=== PATIENT | female | born 1945 | race Caucasian/White ===

== ENCOUNTER 2017-05-07 10:03 | Emergency (ER) | payer BC, MEDICARE ==
[~2017-05-07] VITALS: Ht 157.5 cm; Wt 50.0 kg
[~2017-05-07 10:03] MED LIST: /PROG10CA; ESTROGEN PATCH; TUSSSUS5; VITAMIN D50000 UNT
[2017-05-07] MEDS ORDERED: MULT1TAB10 PO (10:23)
[2017-05-07] MEDS ORDERED: PRIL20TA2 PO (10:23)
[2017-05-07] MEDS ORDERED: PROZ40CA PO (10:23)
[2017-05-07] MEDS ORDERED: ZANT300T PO (10:23)
[2017-05-07] MEDS ORDERED: VITA10006 PO (10:23)
[2017-05-07] MEDS ORDERED: VESI10TA PO (10:23)
[2017-05-07] MEDS ORDERED: ALPR0.25 PO (10:23)
[2017-05-07] MEDS ORDERED: LIPI10TA PO (10:23)
[2017-05-07] MEDS ORDERED: ASPI81TA7 PO (10:23)
[2017-05-07] MEDS ORDERED: VITA20008 PO (10:23)
[2017-05-07] MEDS ORDERED: ASPIRIN 81 MG CHEW TABLET PO ONE (10:45)
[2017-05-07 11:02] LABS: BASO % 0.8 % (0.0-1.0); EOS # 0.2 K/mm3 (0.0-0.50); EOS % 2.3 % (0.0-3.0); LARGE UNSTAINED CELL # 0.1 K/mm3 (0.0-0.4); LARGE UNSTAINED CELL % 2.1 % (0.0-4.0); LYMPH % 27.5 % (24.0-44.0); MEAN CORPUSCULAR HEMOGLOBIN 26.7 pg (27.0-33.0); MEAN CORPUSCULAR HGB CONC 31.2 g/dl (32.0-36.5); MEAN CORPUSCULAR VOLUME 85.4 fl (80.0-96.0); MONO # 0.4 K/mm3 (0.0-0.8); MONO % 5.1 % (0.0-5.0); NEUTROPHILS # 4.3 K/mm3 (1.8-7.7); NEUTROPHILS % 62.3 % (36.0-66.0); PLATELET COUNT, AUTOMATED 219 k/mm3 (150-450); RED CELL DISTRIBUTION WIDTH 16.3 % (11.5-14.5); WHITE BLOOD COUNT 6.9 K/mm3 (4.0-10.0)
--- NOTE | 2017-05-07 11:08 | REP ---
Chest one-view HISTORY: Chest pain Comparison: 08/26/2013 An increase in interstitial markings is present in the lower lobes consistent with chronic interstitial fibrosis The heart is normal in size. The pulmonary vasculature is normal in appearance. Impression: Chronic interstitial fibrosis. Signed by Drake Diaz MD 05/07/2017 11:00 A
[2017-05-07 11:20] LABS: ALBUMIN 3.2 GM/DL (3.2-5.2); ALBUMIN/GLOBULIN RATIO 0.91 (1.00-1.93); ALKALINE PHOSPHATASE 99 U/L (45-117); ALT/SGPT 39 U/L (12-78); ANION GAP 4 MEQ/L (8-16); AST/SGOT 37 U/L (15-37); BILIRUBIN,DIRECT < 0.1 MG/DL (0.0-0.2); BILIRUBIN,TOTAL 0.3 MG/DL (0.2-1.0); BLOOD UREA NITROGEN 11 MG/DL (7-18); CALCIUM LEVEL 9.4 MG/DL (8.8-10.2); CARBON DIOXIDE LEVEL 33 MEQ/L (21-32); CHLORIDE LEVEL 101 MEQ/L (98-107); CREATININE FOR GFR 0.97 MG/DL (0.55-1.02); GLOMERULAR FILTRATION RATE 59.8 (>39); GLUCOSE, FASTING 76 MG/DL (83-110); POTASSIUM SERUM 3.9 MEQ/L (3.5-5.1); SODIUM LEVEL 138 MEQ/L (136-145); TOTAL PROTEIN 6.7 GM/DL (6.4-8.2)
[2017-05-07] MEDS ORDERED: ALPRAZolam 0.25 MG TAB PO ONE (15:45)
[2017-05-07 18:34] VITALS: BP 152/86
--- NOTE | 2017-05-08 08:10 | ECGEPIP ---
Stationary ECG Study [facility] - ED Test Date: 2017-05-07 Pat Name: SHUBHAM SALAS Department: Room: - Gender: F Performance Test Consultant: triston : 1945 Requested By: Maikel Kwon Order Number: [id number] Reading MD: Maikel Sosa Measurements Intervals [place] Rate: 63 P: 53 ND: 157 QRS: 8 QRSD: 86 T: 65 QT: 473 QTc: 487 Interpretive Statements SINUS RHYTHM LEFT VENTRICULAR HYPERTROPHY AND ST-T CHANGE NO PRIORS Electronically Signed On 05-08-2017 8:10:30 EDT by Maikel Sosa
--- NOTE | 2017-05-08 08:14 | ECGEPIP ---
Stationary ECG Study [facility] - ED Test Date: 2017-05-07 Pat Name: SHUBHAM VILLARREAL Department: Room: - Gender: F Wire Lather: [email or web address] : 1945 Requested By: Maikel Kwon Order Number: [id number] Reading MD: Maikel Sosa Measurements Intervals [place] Rate: 73 P: 61 MD: 161 QRS: 4 QRSD: 85 T: 88 QT: 427 QTc: 472 Interpretive Statements SINUS RHYTHM LEFT VENTRICULAR HYPERTROPHY AND ST-T CHANGE SIMILAR TO PRIOR ON SAME DATE Electronically Signed On 05-08-2017 8:14:12 EDT by Maikel Sosa
== END 2017-05-07 18:37 | disposition home or self-care (01) ==
LOC: M ED 10:57
DX: R07.89 Other chest pain (principal); K21.9 Gastro-esophageal reflux disease without esophagitis; G20 Parkinson's disease; F03.90 Unspecified dementia, unspecified severity, without behavioral disturbance, psychotic disturbance, mood disturbance, and anxiety; K59.09 Other constipation; Z79.899 Other long term (current) drug therapy; Z79.82 Long term (current) use of aspirin

== ENCOUNTER → 2017-05-27 | Outpatient (REF) | payer BC, MEDICARE ==
[~2017-05-27] MED LIST changes: +ALPR0.25 PO; +ASPI1TAB15 PO; +LIPI10TA PO; +MULT1TAB10 PO; +PRIL20TA2 PO; +PROZ40CA PO; +VESI10TA2 PO; +VITA10006 PO; +VITA20008 PO; +ZANT300T PO
[2017-05-27 19:10] LABS: PERCENT SATURATION 10.4 % (13.2-37.4)
[2017-05-27 19:34] LABS: RETIC HEMOGLOBIN CONTENT CHr 30.3 PG (24-36); RETICULOCYTE % 1.5 % (0.5-1.5)
== END ==
LOC: M LAB REF 16:41
PROVIDERS: ATTEND Internal Medicine
DX: D64.9 Anemia, unspecified (principal)

== ENCOUNTER → 2018-05-18 | Outpatient (CLI) | payer MEDICARE | LOC: M WUC 12:09 | DX: R05 Cough (principal) | CPT/HCPCS: 71046 ==

== ENCOUNTER → 2018-07-19 | Outpatient (REF) | payer MEDICARE | LOC: M LAB REF 13:45 | DX: L03.221 Cellulitis of neck (principal) | CPT/HCPCS: 87205 ==